=== PATIENT | female | born 1975 | race Asian ===

== ENCOUNTER → 2017-02-04 | Outpatient (CLI) | payer BC ==
[~2017-02-04] MED LIST: ACET-1600 PO; HYDR-3237 PO; None per pt
[2017-02-04 11:55] LABS: HEMATOCRIT 37.5 % (34.6-47.8); HEMOGLOBIN 12.2 g/dL (11.7-16.4); WHITE BLOOD COUNT 6.6 x10^3/uL (3.4-10)
[2017-02-04 12:04] LABS: BLOOD UREA NITROGEN 9 mg/dL (7-18)
[2017-02-04 12:07] LABS: ASPARTATE AMINO TRANSFERASE 17 U/L (15-37)
== END | disposition home or self-care (01) ==
LOC: STAR 10:59
PROVIDERS: ATTEND Obstetrics & Gynecology
DX: Z01.818 Encounter for other preprocedural examination (principal); D25.9 Leiomyoma of uterus, unspecified
CPT/HCPCS: 36415; 80053; 81003; 84703; 85025; 93005

== ENCOUNTER 2017-02-15 05:31 | Inpatient (IN) | payer BC ==
[~2017-02-15] VITALS: Ht 157.5 cm; Wt 30.1 kg
[2017-02-15] MEDS ORDERED: LACTATED RINGERS 1,000 ML IV SCH (06:07)
[2017-02-15] MEDS ORDERED: MIDAZOLAM 1 MG/ML, 2ML ONE (06:48)
[2017-02-15] MEDS ORDERED: FENTANYL PF 100 MCG/2ML ONE ×4 (06:49→09:19)
[2017-02-15] MEDS ORDERED: PROPOFOL 10 MG/ML, 20ML ONE (06:54)
[2017-02-15] MEDS ORDERED: CEFAZOLIN 1,000 MG ONE ×2 (06:55)
[2017-02-15] MEDS ORDERED: ROCURONIUM 10 MG/ML ONE (06:55)
[2017-02-15 07:05] LABS: HCG UR LOT HCG7030192
[2017-02-15 07:10] LABS: HCG UR OBC PASS
[2017-02-15] MEDS ORDERED: OXYcodone 5 MG/5 ML ORAL.SOL UDC PO PRN (07:30)
[2017-02-15] MEDS ORDERED: LABETALOL 5MG/ML, 20ML IV PRN (07:30)
[2017-02-15] MEDS ORDERED: ONDANSETRON 2MG/ML, 2ML IVPush PRN (07:30)
[2017-02-15] MEDS ORDERED: PROMETHAZINE 25 MG/ML, 1ML IV PRN (07:30)
[2017-02-15] MEDS ORDERED: FENTANYL PF 100 MCG/2ML IV PRN (07:30)
[2017-02-15] MEDS ORDERED: MEPERIDINE/PF 25MG/0.5ML IVPush PRN (07:30)
[2017-02-15] MEDS ORDERED: ACETAMINOPHEN 325 MG TABLET PO PRN (07:30)
[2017-02-15] MEDS ORDERED: hydrALAzine 20 MG/ML, 1ML IV PRN (07:30)
[2017-02-15] MEDS ORDERED: DEXAMETHASONE 4 MG/ML, 1ML ONE ×2 (07:50→07:51)
[2017-02-15] MEDS ORDERED: NEOSTIGMINE 1 MG/ML, 10ML ONE (07:55)
[2017-02-15] MEDS ORDERED: GLYCOPYRROLATE 0.4 MG/2 ML, 2ML ONE ×2 (07:56)
[2017-02-15] MEDS ORDERED: ONDANSETRON 2MG/ML, 2ML ONE (08:26)
[2017-02-15] MEDS ORDERED: KETOROLAC 30 MG/1 ML ONE (08:26)
[2017-02-15] MEDS ORDERED: HYDROmorphone 1 MG/ML, 1ML ONE (09:19)
[2017-02-15] MEDS: HYDROmorphone 1 MG/ML, 1ML IV PRN ×3 (09:25→09:50)
[2017-02-15] MEDS ORDERED: morphine SULFATE 10 MG/ML, 1ML IV PRN (11:00)
[2017-02-15] MEDS ORDERED: INSTRUCTION SEE COMMENTS XX PRN (11:00)
[2017-02-15] MEDS ORDERED: OXYcodone/APAP 5/325MG TABLET PO PRN (11:00)
[2017-02-15] MEDS ORDERED: ONDANSETRON 2MG/ML, 2ML IV PRN (11:00)
[2017-02-15] MEDS ORDERED: KETOROLAC 30 MG/1 ML IV PRN (11:00)
[2017-02-15] MEDS: IBUPROFEN 600 MG TABLET PO SCH ×3 (11:24→21:29)
[2017-02-15 13:37] VITALS: BP 104/68
[2017-02-15] MEDS: SIMETHICONE 80 MG CHEW TAB PO SCH ×2 (15:27→21:29)
[2017-02-15] MEDS: POTASSIUM CHLORIDE 20 MEQ in D5%-0.45% NACL 1,000 ML IV SCH (15:27)
[2017-02-15] MEDS ORDERED: SODIUM CHLORIDE 0.9%, 500ML IVBOLUS ONE (15:30)
[2017-02-15 19:50] VITALS: BP 103/70
[2017-02-15] MEDS: SODIUM CHLORIDE FLUSH 10ML SYR IVF SCH (20:24)
[2017-02-15] MEDS: DOCUSATE 100 MG CAPSULE PO SCH (21:29)
[2017-02-15] MEDS: SENNA/DOCUSATE TABLET PO SCH (21:29)
[2017-02-15 23:47] VITALS: BP 97/66
[2017-02-16] MEDS: POTASSIUM CHLORIDE 20 MEQ in D5%-0.45% NACL 1,000 ML IV SCH ×4 (01:46→23:20)
[2017-02-16 03:36] VITALS: BP 93/56
[2017-02-16 05:59] LABS: HEMOGLOBIN 6.7 g/dL (11.7-16.4)
[2017-02-16] MEDS: IBUPROFEN 600 MG TABLET PO SCH ×4 (06:14→20:58)
[2017-02-16 07:29] VITALS: BP 92/53
[2017-02-16] MEDS: SODIUM CHLORIDE FLUSH 10ML SYR IVF SCH ×2 (09:00→20:58)
[2017-02-16] MEDS: SIMETHICONE 80 MG CHEW TAB PO SCH ×3 (09:10→20:58)
[2017-02-16] MEDS: DOCUSATE 100 MG CAPSULE PO SCH ×2 (09:10→20:58)
[2017-02-16 10:00] LABS: HEMOGLOBIN 7.1 g/dL (11.7-16.4)
[2017-02-16 10:03] LABS: HEMATOCRIT 21.5 % (34.6-47.8)
[2017-02-16 14:22] LABS: HEMOGLOBIN 7.1 g/dL (11.7-16.4); WHITE BLOOD COUNT 8.6 x10^3/uL (3.4-10)
[2017-02-16 14:25] LABS: HEMATOCRIT 21.6 % (34.6-47.8)
[2017-02-16 14:43] VITALS: BP 86/61
[2017-02-16 19:08] VITALS: BP 97/62
[2017-02-16] MEDS: SENNA/DOCUSATE TABLET PO SCH (20:58)
[2017-02-17 01:47] VITALS: BP 89/56
[2017-02-17 05:30] LABS: HEMATOCRIT 19.2 % (34.6-47.8); HEMOGLOBIN 6.4 g/dL (11.7-16.4)
[2017-02-17] MEDS: IBUPROFEN 600 MG TABLET PO SCH (05:55)
[2017-02-17 06:50] VITALS: BP 97/64
[2017-02-17] MEDS: DOCUSATE 100 MG CAPSULE PO SCH (07:33)
[2017-02-17] MEDS: SODIUM CHLORIDE FLUSH 10ML SYR IVF SCH (07:34)
[2017-02-17] MEDS: SIMETHICONE 80 MG CHEW TAB PO SCH (07:34)
== END 2017-02-17 11:15 | disposition home or self-care (01) | DRG 743 ==
LOC: ORIP 05:31 → 4NOR 10:20
PROVIDERS: ADMIT Obstetrics & Gynecology; ATTEND Obstetrics & Gynecology
PROC: 0UT70ZZ Resection of Bilateral Fallopian Tubes, Open Approach (ICD-10-PCS; 2017-02-15)
PROC: 0UT90ZZ Resection of Uterus, Open Approach (ICD-10-PCS; principal; 2017-02-15 07:30)
DX: D25.9 Leiomyoma of uterus, unspecified (principal); D64.9 Anemia, unspecified; N92.0 Excessive and frequent menstruation with regular cycle; Z53.29 Procedure and treatment not carried out because of patient's decision for other reasons; Z98.51 Tubal ligation status
CPT/HCPCS: 36415; 81025; 85014; 85018; 85025; 86850; 86900; 86923; 88307; J0690; J1100; J1170; J1885; J2250; J2405; J2704; J2710; J3010; J3480; J7040; J7120